=== PATIENT | female | born 1960 | race Caucasian/White ===

== ENCOUNTER 2023-04-16 13:00 | Emergency (ER) | payer BC ==
[~2023-04-16] VITALS: Ht 177.8 cm; Wt 103.5 kg
[~2023-04-16 13:00] MED LIST: AMOX TR-K CLV1 EAC1 PO; EZETIMIBE10 MG PO; FLONASE ALLERG9.9 ML NAS; OMEPRAZOLE20 MG PO; PREDNISONE20 MG PO; SIMVASTATIN20 MG PO; VENTOLIN HFA18 GM INH
[2023-04-16 13:54] LABS: BASOPHILS 2.8 % (0-2); EOSINOPHILS 3.2 % (0-6); HEMATOCRIT 41.5 % (35.0-50.0); HEMOGLOBIN 13.6 g/dL (12.0-18.0); LYMPHOCYTES 29.1 % (24-44); MCHC 32.7 g/dl (30-36); MCV 91.8 fl (81-99); MONOCYTES 10.2 % (0-12); NEUTROPHILS 54.7 % (39-80); PLATELET COUNT 267 K/uL (140-440); RBC 4.52 M/ul (4.3-5.7); RDW 14.9 (10.5-15.0)
[2023-04-16 14:10] LABS: ALBUMIN 3.8 g/dL (3.4-5.0); ALBUMIN/GLOBULIN RATIO 1.12 (1.1-2.4); ANION GAP 13.9 (7-21); BILIRUBIN, TOTAL 0.3 ng/dL (0.2-1.0); BUN/CREATININE RATIO 25.31 (6.0-28.6); CALCIUM 9.2 mg/dL (8.5-10.1); CREATININE, SERUM 0.79 mg/dL (0.55-1.02); POTASSIUM 3.9 mmol/L (3.5-5.1); PROTEIN, TOTAL 7.2 g/dL (6.4-8.2)
[2023-04-16] MEDS ORDERED: REGLAN10 MG PO (14:55)
[2023-04-16 15:12] VITALS: BP 144/85
== END 2023-04-16 15:10 | disposition home or self-care (01) ==
LOC: ED 13:00
PROVIDERS: Student in an Organized Health Care Education/Training Program
DX: K21.9 Gastro-esophageal reflux disease without esophagitis (principal); J45.909 Unspecified asthma, uncomplicated; Z88.8 Allergy status to other drugs, medicaments and biological substances; Z91.010 Allergy to peanuts; Z79.899 Other long term (current) drug therapy
CPT/HCPCS: 36415; 76705; 80053; 83690; 85025; 99284-25